=== PATIENT | female | born 1945 | race Caucasian/White ===

== ENCOUNTER 2023-07-31 23:56 | Observation (INO) | payer OTHER, SELFPAY ==
[2023-07-31 19:03] VITALS: BP 142/78
[2023-07-31 19:38] LABS: % Basophils 0.4 % (0-2); % Immature Granulocytes 0.4 % (0-0.5); % Lymphocytes 13.6 % (20.5-51.1); % Monocytes 11.8 % (1.7-9.3); % Neutrophils 73.8 % (42.2-75.2); Absolute Lymphocytes 1.1 10^3/uL (1.2-3.4); Absolute Monocytes 0.9 10^3/uL (0.1-0.6); Absolute Neutrophils 5.7 10^3/uL (1.4-6.5); Hematocrit 47.5 % (37.0-47.0); Hemoglobin 16.5 g/dL (12.0-16.0); Mean Corp Hgb Conc. 34.7 g/dL (33.0-37.0); Mean Corpuscular Hgb 31.4 pg (27.0-31.0); Mean Corpuscular Volume 90.5 fL (81.0-99.0); Mean Platelet Volume 10.2 fL (7.4-10.4); Nucleated Red Blood Cells % 0 %; Platelet Count 201 10^3/uL (130-400); Red Blood Cell Count 5.25 10^6/uL (4.20-5.40); Red Cell Dist. Width 13.7 % (11.5-14.5); White Blood Cell Count 7.8 10^3/uL (4.8-10.8)
[2023-07-31 19:45] LABS: COVID-19 Antigen Negative (Negative)
[2023-07-31 20:01] LABS: ALT (SGPT) 29 U/L (0-35); AST (SGOT) 47 U/L (14-36); Albumin 4.1 g/dl (3.5-5.0); Alkaline Phosphatase 101 U/L (38-126); Blood Urea Nitrogen 22 mg/dl (7-17); Calcium 9.5 mg/dl (8.4-10.2); Carbon Dioxide 20 mmol/L (22-30); Chloride 100 mmol/L (98-107); Glucose 171 mg/dl (70-99); Potassium 4.1 mmol/L (3.5-5.1); Sodium 136 mmol/L (135-145); Total Bilirubin 0.9 mg/dl (0.2-1.3); Total Protein 7.1 g/dl (6.3-8.2); eGFR > 60.00
--- NOTE | 2023-07-31 22:01 | ED.GENMED ---
History of Present Illness
<Leslye Webster, [facility] - Last Filed: 07/31/23 23:35>
General
Chief Complaint: Head Injury
Source: patient and spouse
Exam Limitations: none
Time Seen by Provider: 07/31/23 22:01
Nursing documentation reviewed up to this point in time: agreed with
Travel History
Have you had any contact with someone who has COVID-19?: No
Do you have any symptoms of coronavirus? Fever > 100 degrees, chills, cough, shortness of breath, sore throat, loss of taste or smell, muscle aches, or headache?: Yes
Symptoms:: cold symptoms
History of Present Illness
History of Present Illness:
This is a 77 YOF with PMHx of HTN, GERD, DM presenting with one episode of syncope and L anterior forehead laceration. Pt had syncopal episode with LOC around 1000 today with no prodromal symptoms. Pt fell from standing and struck her head as she
fell, unsure if it was on a cabinet or the floor. The fall was unwitnessed. Pt does not take anticoags but does take ASA daily. The pt sustained a 5cm jagged edged lac on her L anterior forehead 2.5 cm above the brow. Pt mentioned Pt was
unsteady when ambulating throughout the day since but the patient denied any symptoms, including dizziness. Pt did have recent Hx of dizziness and was eval in Jun 2023, given meclizine Rx for her intermittent symptoms. Pt was unwilling to get eval
initially, but then Pt's took her to Urgent care, but was advised to visit a [facility] for further eval. Upon eval there, Pt was advised to visit ED for eval and Pt then was admitted to ED. Pt mentioned WILSON began since ED admit, but
mentioned it is minor and related to the bright lights as her WILSON is alleviated in a darkened room. Pt admitted one episode of softer stools this AM which is not normal for her, denied melena, hematochezia. Pt admitted to normal appetite and fluid
intake. Pt admitted to recent viral illness with rhinorrhea that has improved over the past week. Pt denied vision changes, chest pain, SOB, N/V/C, sensory deficits. Rx allergy to Metformin.
If applicable-neuro sx onset
Onset of symptoms known: Yes
Date of onset of symptoms: 07/31/23
Time of onset of symptoms: 10:00
Time pt last seen normal is known: Yes
Date last time pt seen normal: 07/31/23
Time last time pt seen normal: 10:00
Review of Systems
<YAO Best - Last Filed: 07/31/23 23:35>
Review of Systems
Allergies reviewed?: Yes
All Other Systems: ROS reviewed and negative except as documented in HPI and ROS
Constitutional: Reports no symptoms
EENT: Reports runny nose
Respiratory: Reports no symptoms
Cardiac: Reports no symptoms
ABD/GI: Reports diarrhea
: Reports no symptoms
Musculoskeletal: Reports no symptoms
Skin: Reports other (laceration)
Neurological: Reports headache, weakness and other (Syncope)
Hematologic/Lymphatic: Reports no symptoms
Psychiatric: Reports no symptoms
Phy Exam
<Leslye Webster LUCIUS - Last Filed: 07/31/23 23:35>
General Physical Exam
General Presentation: well appearing
General age: appears stated age
General Skin: warm and dry
General Habitus: obese
General Mental: alert
General Hydration: appears well hydrated
ENT Exam
ENT Exam: EOMI, neck supple, normocephalic and swallowing well
Eye Exam
Eye Exam: PERRL and EOMI
Cardiovascular Exam
Cardiovascular Exam: regular rate/rhythm, no edema, no gallop, no JVD, no murmur and normal peripheral pulses
Pulmonary Exam
Pulmonary Exam: lungs clear, no respiratory distress, no rales, chest non tender, no crackles, no rhonchi, no stridor, no wheezing and no cough
Gastrointestinal Exam
Gastrointestinal Exam: normal bowel sounds, non tender, soft, no pulsatile mass, non distended and no masses
Neurological Exam
Neurological Exam: alert, oriented x3, no motor deficits, no sensory deficits and speech normal
NIH Stroke Score
Level of Consciousness: 0 - Alert
LOC questions: 0-Answers both correctly
LOC Commands: 0-Performs both correctly
Best Gaze: 0-Normal
Visual Finney: 0=Normal, no visual loss
Facial palsy: 0=Normal, symmetrical
Motor - Right Arm: 0=No drift 10 seconds
Motor - Left Arm: 0=No drift 10 seconds
Motor - Right Le-No drift 5 seconds
Motor - Left Le-No drift 5 seconds
Limb Ataxia: 0-Absent
Sensation: 0-Normal
Best Language: 0-No aphasia
Dysarthria: 0-Normal
Extinction and Inattention: 0-No abnormality
Total Score:: 0
Musculoskeletal Exam
Musculoskeletal Exam: neuro vasc intact
Skin Exam
Skin Exam: normal color, warm/dry and laceration (5cm, L anterior forehead)
Psychiatric Exam
Psychiatric Exam: normal mood/affect
<Ricardo Rebollar DO - Last Filed: 08/01/23 08:01>
NIH Stroke Score
Total Score:: 0
Course
<ST EstephaniaOK - Last Filed: 07/31/23 23:35>
Orders/Labs/Results
Orders:
Orders
07/31/23 19:14
CT Facial Bones W/o Iv Contras Urgent
Comment:
Reason For Exam: fall left cheek pain
CT Head W/o Iv Contrast Urgent
Comment:
Reason For Exam: fall
07/31/23 19:17
COVID-19 Antigen Urgent
Source: Nasal Swab
Comment: .
07/31/23 19:19
Electrocardiogram (*1) Urgent
Reason for Study: Syncope
Cardiology Consult: Unknown
07/31/23 19:20
EKG- Treatment ONCE
07/31/23 19:32
Complete Blood Count/With Diff Urgent
Comprehensive Metabolic Panel Urgent
07/31/23 22:54
Cardiac Monitoring- Treatment ONCE
IV Insert/Care/Rem.- Treatment PRN
07/31/23 22:57
Lactic Acid Q4H
Comment: ON ICE, CANCEL 2ND ORDER IF FIRST LACTIC ACID LEVEL <2
Troponin I Urgent
Blood Culture Q30M
LOVE Source: Blood/Venous
Specimen Description:
Comment: FROM 2 SEPARATE SITES
07/31/23 23:36
Blood Culture Q30M
LOVE Source: Blood/Venous
Specimen Description:
Comment: FROM 2 SEPARATE SITES
Abnormal Lab Results
07/31/23
19:32
Hgb 16.5 H g/dL
(12.0-16.0)
Hct 47.5 H %
(37.0-47.0)
MCH 31.4 H pg
(27.0-31.0)
Absolute Lymphs (auto) 1.1 L 10^3/uL
(1.2-3.4)
Absolute Monos (auto) 0.9 H 10^3/uL
(0.1-0.6)
Lymphocytes % 13.6 L %
(20.5-51.1)
Monocytes % 11.8 H %
(1.7-9.3)
Carbon Dioxide 20 L mmol/L
(22-30)
BUN 22 H mg/dl
(7-17)
Glucose 171 H mg/dl
(70-99)
AST 47 H U/L
(14-36)
07/31/23 19:32
07/31/23 19:32
Vital Signs
Initial and Last Documented VS:
Initial Vital Signs
Temp Pulse Resp BP Pulse Ox
99.6 F 95 20 142/78 96
07/31/23 19:03 07/31/23 19:03 07/31/23 19:03 07/31/23 19:03 07/31/23 19:03
Last Documented Vital Signs
Temp Pulse Resp BP Pulse Ox
100 F 67 20 133/58 89
08/01/23 04:15 08/01/23 06:00 08/01/23 06:00 08/01/23 04:09 08/01/23 06:00
<Ricardo Rebollar, DO - Last Filed: 08/01/23 08:01>
Orders/Labs/Results
Orders:
Orders
07/31/23 19:14
CT Facial Bones W/o Iv Contras Urgent
Comment:
Reason For Exam: fall left cheek pain
CT Head W/o Iv Contrast Urgent
Comment:
Reason For Exam: fall
07/31/23 19:17
COVID-19 Antigen Urgent
Source: Nasal Swab
Comment: .
07/31/23 19:19
Electrocardiogram (*1) Urgent
Reason for Study: Syncope
Cardiology Consult: Unknown
07/31/23 19:20
EKG- Treatment ONCE
07/31/23 19:32
Complete Blood Count/With Diff Urgent
Comprehensive Metabolic Panel Urgent
07/31/23 22:54
Cardiac Monitoring- Treatment ONCE
IV Insert/Care/Rem.- Treatment PRN
07/31/23 22:57
Lactic Acid Q4H
Comment: ON ICE, CANCEL 2ND ORDER IF FIRST LACTIC ACID LEVEL <2
Troponin I Urgent
Blood Culture Q30M
LOVE Source: Blood/Venous
Specimen Description:
Comment: FROM 2 SEPARATE SITES
07/31/23 23:36
Blood Culture Q30M
LOVE Source: Blood/Venous
Specimen Description:
Comment: FROM 2 SEPARATE SITES
Abnormal Lab Results
07/31/23
19:32
Hgb 16.5 H g/dL
(12.0-16.0)
Hct 47.5 H %
(37.0-47.0)
MCH 31.4 H pg
(27.0-31.0)
Absolute Lymphs (auto) 1.1 L 10^3/uL
(1.2-3.4)
Absolute Monos (auto) 0.9 H 10^3/uL
(0.1-0.6)
Lymphocytes % 13.6 L %
(20.5-51.1)
Monocytes % 11.8 H %
(1.7-9.3)
Carbon Dioxide 20 L mmol/L
(22-30)
BUN 22 H mg/dl
(7-17)
Glucose 171 H mg/dl
(70-99)
AST 47 H U/L
(14-36)
07/31/23 19:32
07/31/23 19:32
Vital Signs
Initial and Last Documented VS:
Initial Vital Signs
Temp Pulse Resp BP Pulse Ox
99.6 F 95 20 142/78 96
07/31/23 19:03 07/31/23 19:03 07/31/23 19:03 07/31/23 19:03 07/31/23 19:03
Last Documented Vital Signs
Temp Pulse Resp BP Pulse Ox
100 F 67 20 133/58 89
08/01/23 04:15 08/01/23 06:00 08/01/23 06:00 08/01/23 04:09 08/01/23 06:00
<Ricardo Rebollar DO - Last Filed: 08/01/23 08:01>
Laceration Closure
Left Forehead:
Status of Wound: clean
Size of Wound in cm: 5
Description of Wound Edges: surrounded by abrasion and flap-well vascularized
Preparation: cleaned with saline
Anesthesia: 1% Lidocaine with epi
Revision/Debridement: routine- no revision
Wound exploration: explored to base- no FB
Type of Closure: single layer closure
Skin Closure Material: 5-0 prolene
Number of sutures: 8
<YAO Best - Last Filed: 07/31/23 23:35>
MDM/Problems Addressed
Differential Diagnosis Includes:
Intracranial hemorrhage, facial bone fracture, cranial fracture, CVA, TIA, arrhythmia
MDM/Problems Addressed:
77 YOF presenting with syncope and head injury
<Ricardo Rebollar DO - Last Filed: 08/01/23 08:01>
MDM/Problems Addressed
Chronic conditions affecting care: HTN
Acute Exacerbation and/or Progression of Chronic Illness: HTN
<YAO Best - Last Filed: 07/31/23 23:35>
*Radiology
Radiology exam reviewed: radiology read reviewed
*Pulse Oximetry
Patient hypoxic: no
*Mail Inserter Interpretation
Rate: normal
Interpretation: normal
Heart Rate: 82
Rhythm: sinus and PAC's
*Critical Care Note
Total Time (30-74mins, 75-104mins- exclusive of procedures): Not Applicable
<Ricardo Rebollar DO - Last Filed: 08/01/23 08:01>
*EKG
Interpreted by ED Provider?: Yes
EKG Intrepretation Date: 08/01/23
EKG Intrepretation Time: 19:24
Interpretation: abnormal
Comparison EKG: no comparison EKG present
Heart Rate: 82
Rate: normal
Rhythm: sinus and PAC's
[place]: normal axis
Interval: normal interval
QRS Pattern: normal QRS
Ischemia: no ischemia
ED Attending Note
<YAO Best - Last Filed: 07/31/23 23:35>
-
Portions of this chart may have been created with voice recognition software.� Occasional wrong word or��sound alike� substitutions may have occurred due to the inherent limitations of voice recognition software.
<Ricardo Rebollar DO - Last Filed: 08/01/23 08:01>
ED Attending Note
Patient seen and examined by attending physician: Yes
I performed the substantive portion of visit, reviewed & personally made and approve the management plan that is documented in note by myself or NOMAN.: Yes
I performed a history and physical exam of patient and discussed management with resident, I reviewed resident's note and agree with documented findings and plan of care.: Yes
ED Attending Note:
I have reviewed and agree with history and treatment plan by Leslye Webster. My exam revealed 77-year-old female in no acute distress with 5 cm laceration left forehead/eyebrow. Repaired by myself and PA student. Patient's syncope had no prodrome,
for this reason we will admit her to the hospital for further evaluation
Discharge Plan
Departure
Patient Disposition: Admit
Date of Disposition: 07/31/23
Time of Disposition: 23:26
Admit to: Telemetry
Presentation/result/management discussed w/ accepting MD/DO: Hospitalist
Condition: Good
Discharge Problem:
Syncope, Forehead laceration
Interventions
Interventions:
*Risk Screen - Suicide Last Done: 07/31/23 19:03
*General Assessment Last Done: 07/31/23 19:03
*Neglect/Abuse Screening Last Done: 07/31/23 19:03
ED- Fall Risk Assessment Last Done: 07/31/23 19:03
*ED COVID-19 Vaccine History Last Done: 07/31/23 19:03
ED- Neurological Assessment Last Done: 07/31/23 22:12
ED-Skin Assessment Last Done: 07/31/23 22:12
[2023-07-31 22:06] VITALS: BP 147/79
[2023-07-31 22:11] VITALS: BP 147/79
--- NOTE | 2023-07-31 22:19 | EDRN ---
Granddaughter Kathleen [phone]
Call when discharge
[2023-07-31 23:16] LABS: Lactic Acid 1.2 mmol/L (0.7-2.0)
[2023-07-31 23:29] VITALS: BP 129/75
[2023-07-31 23:29] LABS: Troponin I < 0.012 ng/ml
[2023-08-01] VITALS (20 sets, daily range): BP systolic 103–150; BP diastolic 58–90; PULSE 67–83; BMI 32.8; BMI 22.1
--- NOTE | 2023-08-01 | HPS.HSE ---
Family Physician
-
Family Physician:
Chief Complaint
-
Syncope / Head Injury
History of Present Illness
Patient is a 77y F with PMH significant for Restless Leg Syndrome, GERD and DM-II who presents to ED complaining of head laceration after a syncopal event this AM. History obtained from patient and her at the bedside. Patient states
that she was making breakfast sausage this AM and the next thing she knew she was on the floor. She denies any prodrome of chest pain, palpitations, lightheadedness or dizziness. Her heard a loud bang from upstairs and came down to find
the patient on the floor with head lac and bleeding. She was awake and alert when he arrived. Patient declined medical attention at that time. As the day went on, patient felt well; however, her laceration became larger / more gapped. They went
to a few Urgent Care's for evaluation but were ultimately referred here given the head trauma.
Evaluation in the ED has been relatively unremarkable thus far. L forehead laceration above the eyebrow sutured in the ED.
Patient is resting comfortably at present and has no complaints.
Patient was hospitalized in June at [facility] and again at [facility] for symptoms of lightheadedness / dizziness. It was ultimately determined that she had a vertigo syndrome and she was prescribed meclizine.
She has had no similar symptoms since. She denies any dizziness / room spinning either this AM or at present.
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
Medical History
Past Medical History
Past Medical History: Reports Other
Additional Past Medical History:
DM-II
Restless Leg Syndrome
Hypertension
GERD
Past Surgical History: Reports Other
Additional Past Surgical History:
Bilateral ELYSE
Cholecystectomy
Social History
Tobacco: Former Smoker (Quit smoking 30 years ago. Approx 20 pack years total use.)
Alcohol: None
Drug: None
Family History
Family History: Not pertinent
Allergies / Home Medications
Allergies reflects when Allergies were last updated in [employer] [facility].
Home Medications with original date entered in [employer] [facility]
Allergy/Medication List:
Allergies
Allergy/AdvReac Type Severity Reaction Status Date / Time
metformin Allergy Nausea Verified 07/31/23 19:03
Home Medications
Azo PO DAILY 07/31/23
Lantus Solostar U-100 Insulin QHS 07/31/23
Ocuvite DAILY 07/31/23
Trulicity WEEKLY 07/31/23
amlodipine PO DAILY 07/31/23
aspirin 81 mg tablet 81 mg PO DAILY 07/31/23
atorvastatin PO DAILY 07/31/23
cephalexin PO PRN dental work 07/31/23
famotidine PO QHS 07/31/23
meclizine PO DAILY 07/31/23
omeprazole PO BID 07/31/23
potassium citrate DAILY 07/31/23
pramipexole PO QHS 07/31/23
Review of Systems
-
History Source: Patient
A 12 point ROS was completed and negative except as noted: Yes
Constitutional: Denies Fever or Chills
Respiratory: Denies Cough or Trouble Breathing
Cardiac: Denies Chest Pain or Palpitations
Abdomen/GI: Denies Abdominal Pain, Nausea, Vomiting or Diarrhea
: Denies Dysuria or Frequency
Musculoskeletal: Denies Joint Pain or Edema
Neurological: Denies Dizzy or Headache
Psych: Denies Depression or Anxiety
Physical Exam
Vital Signs
Vital Signs
Temp Pulse Resp BP Pulse Ox
100.3 F 81 16 129/75 96
07/31/23 22:11 07/31/23 23:30 07/31/23 23:30 07/31/23 23:29 07/31/23 22:15
Physical Exam
General: Other (77y F in no distress.)
HEENT: Moist mucous membranes, PERRLA and Other (Laceration over the L eyebrow with sutures in place. No active bleeding.)
Respiratory: Clear; No Wheezes, Rales or Rhonchi
Cardiac: S1/S2 and Regular Rhythm; No Murmur
GI: Soft, Non Tender, Non Distended and Normal Bowel Sounds
Musculoskeletal: No Clubbing, No Cyanosis and No Edema
Neuro: AO x 3 and Nonfocal/grossly intact
Laboratory Results
-
07/31/23 19:32
07/31/23 19:32
Laboratory Results
Lactic Acid 1.2 mmol/L (0.7-2.0) 07/31/23 22:57
Total Bilirubin 0.9 mg/dl (0.2-1.3) 07/31/23 19:32
AST 47 U/L (14-36) H 07/31/23 19:32
ALT 29 U/L (0-35) 07/31/23 19:32
Alkaline Phosphatase 101 U/L (38-126) 07/31/23 19:32
Troponin I < 0.012 ng/ml 07/31/23 22:57
Impression/Plan
-
A/P: Patient is a 77y F with PMH significant for HTN, DM-II who presents to ED for evaluation after syncopal event / forehead laceration.
Syncope
- Observe overnight for further evaluation.
- Monitor on telemetry for any arrhythmia.
- PT / OT evals in the AM.
- Patient with recent episodes of vertigo - though she denies any prodrome of dizziness this AM.
- Follow for any new / recurrent symptoms.
Head Laceration
- s/p suturing in the ED.
- CT head was unremarkable.
- Follow for any neurologic changes.
Benign Hypertension
- Stable. Verify home dose of amlodipine and resume.
DM-II
- Stable. Continue basal : bolus insulin.
- Will begin with Lantus 10 units for now pending dose verification (patient has list of meds, but no doses).
- Follow SSI and cover as needed.
- Update A1C.
RLS
- Resume usual meds once dosing confirmed.
DVT Prophylaxis: SCDs
Code Status: Full
[2023-08-01] MEDS: NSS 1000 IV ×2 (01:54→11:55)
[2023-08-01 02:42] LABS: Troponin I < 0.012 ng/ml
[2023-08-01] MEDS: TYLENOL 650 MG PO ×2 (04:21→19:50)
[2023-08-01 06:31] LABS: Hematocrit 39.6 % (37.0-47.0); Hemoglobin 13.5 g/dL (12.0-16.0); Mean Corp Hgb Conc. 34.1 g/dL (33.0-37.0); Mean Corpuscular Hgb 31.2 pg (27.0-31.0); Mean Corpuscular Volume 91.5 fL (81.0-99.0); Platelet Count 174 10^3/uL (130-400); Red Blood Cell Count 4.33 10^6/uL (4.20-5.40); Red Cell Dist. Width 13.8 % (11.5-14.5); White Blood Cell Count 6.3 10^3/uL (4.8-10.8)
[2023-08-01 06:48] LABS: Blood Urea Nitrogen 23 mg/dl (7-17); Calcium 8.4 mg/dl (8.4-10.2); Carbon Dioxide 19 mmol/L (22-30); Chloride 105 mmol/L (98-107); Estimated Creatinine Clearance 70 ml/min; Glucose 130 mg/dl (70-99); Potassium 3.4 mmol/L (3.5-5.1); Sodium 136 mmol/L (135-145); eGFR > 60.00
[2023-08-01 07:14] LABS: TSH Reflex To Free T4 0.66 uIU/ml (0.47-4.68)
--- NOTE | 2023-08-01 08:48 | W.PN.HOSP.TC ---
Today's Communication/Plan
-
Needs third troponin and PT eval
She wants to go home after this.
Assessment / Plan
Assessment / Plan
77y F with PMH significant for HTN, DM-II who presents to ED for evaluation after syncopal event / forehead laceration.
1. Syncope, has had this before. Labs were suggestive for dehydration and she takes BP meds.
� - Monitor on telemetry for any arrhythmia.
� - PT / OT evals in the AM.
� - Follow for any new / recurrent symptoms.
She requests going home without definitive answer if she is OK on her feet after PT eval in am
She has capacity for this choice
2. Head Laceration
�- s/p suturing in the ED.
�- CT head was unremarkable.
�- Follow for any neurologic changes. None so far this am.
3. Benign Hypertension
�- Stable.� Verify home dose of amlodipine and resume.
-advise her to avoid being dehydrated
4. DM-II
�- Stable.� Continue basal : bolus insulin.
�- Follow SSI and cover as needed.
�- Update A1C.
5. RLS
�- Resume usual meds once dosing confirmed.
DVT Prophylaxis:� SCDs
Code Status:� Full
Anticipated Discharge: Within 24 hours
Subjective/Interval History
-
Date of Service: August 01, 2023
Feels well. No new problems.
Objective Data
-
Labs:
Laboratory Results
08/01/23
06:14
WBC 6.3
Hgb 13.5
Hct 39.6
Plt Count 174
Sodium 136
Potassium 3.4 L
Chloride 105
Carbon Dioxide 19 L
BUN 23 H
Creatinine 0.6
Glucose 130 H
Calcium 8.4
Vital Signs:
Vital Signs
Temp Pulse Resp BP Pulse Ox
100 F 67 20 133/58 89
08/01/23 04:15 08/01/23 06:00 08/01/23 06:00 08/01/23 04:09 08/01/23 06:00
Review of Systems
-
History Source: Patient
All other systems: Reviewed and negative
Physical Exam
-
General: Well Developed, Well Nourished, No Apparent Distress, Comfortable and Conversant
HEENT: Negative Atraumatic (sutured wound, not bleeding.)
Respiratory: Clear to Auscultation
Cardiac: Regular Rhythm and S1/S2
GI: Soft
Musculoskeletal: No Clubbing, No Cyanosis and No Edema
Skin: Warm and Dry; Negative Rash
Neuro: Awake, Alert, Oriented and AO x 3
Psych: Calm
Data Reviewed
-
Labs: Labs Reviewed by me
[2023-08-01 09:14] LABS: Troponin I < 0.012 ng/ml
[2023-08-01 09:21] LABS: Glucose - Point of Care 115 mg/dl (70-99)
[2023-08-01] MEDS: NOVOLOG FLEXPEN-LOW RESISTANCE SC ×2 (09:27→16:20)
[2023-08-01] MEDS: PROTONIX 20 MG PO ×2 (11:30→19:52)
[2023-08-01] MEDS: LOW STRENGTH ASPIRIN 81 MG PO (11:30)
[2023-08-01 11:56] LABS: Glucose - Point of Care 191 mg/dl (70-99)
[2023-08-01] MEDS: NOVOLOG FLEXPEN-LOW RESISTANCE 1 UNITS SC (13:06)
[2023-08-01 14:45] LABS: Glycohemoglobin (HgbA1c) 8.3 % (4.0-5.6)
[2023-08-01 15:07] LABS: Troponin I < 0.012 ng/ml
[2023-08-01 16:20] LABS: Glucose - Point of Care 122 mg/dl (70-99)
[2023-08-01 17:44] LABS: Glucose - Point of Care 140 mg/dl (70-99)
[2023-08-01 21:19] LABS: Glucose - Point of Care 113 mg/dl (70-99)
[2023-08-01] MEDS: LANTUS 0.100000000000000006 UNITS SC (21:30)
[2023-08-02] MEDS: NSS 1000 IV (01:26)
[2023-08-02] MEDS: TYLENOL 650 MG PO (03:07)
[2023-08-02 03:15] VITALS: BP 135/63
[2023-08-02 07:00] VITALS: BP 138/70
[2023-08-02 07:47] LABS: Glucose - Point of Care 107 mg/dl (70-99)
[2023-08-02 08:04] LABS: Hematocrit 39.8 % (37.0-47.0); Hemoglobin 13.2 g/dL (12.0-16.0); Mean Corp Hgb Conc. 33.2 g/dL (33.0-37.0); Mean Corpuscular Hgb 31.7 pg (27.0-31.0); Mean Corpuscular Volume 95.7 fL (81.0-99.0); Mean Platelet Volume 10.4 fL (7.4-10.4); Platelet Count 157 10^3/uL (130-400); Red Blood Cell Count 4.16 10^6/uL (4.20-5.40); Red Cell Dist. Width 13.7 % (11.5-14.5); White Blood Cell Count 5.2 10^3/uL (4.8-10.8)
[2023-08-02] MEDS: NOVOLOG FLEXPEN-LOW RESISTANCE SC (08:18)
[2023-08-02] MEDS: LOW STRENGTH ASPIRIN 81 MG PO (08:19)
[2023-08-02] MEDS: PROTONIX 20 MG PO (08:19)
[2023-08-02 08:34] LABS: Blood Urea Nitrogen 13 mg/dl (7-17); Calcium 8.2 mg/dl (8.4-10.2); Carbon Dioxide 25 mmol/L (22-30); Chloride 111 mmol/L (98-107); Estimated Creatinine Clearance 89 ml/min; Glucose 104 mg/dl (70-99); Potassium 4.3 mmol/L (3.5-5.1); Sodium 138 mmol/L (135-145); eGFR > 60.00
[2023-08-02 09:14] LABS: Hepatitis C Antibody Negative (Negative)
[2023-08-02 10:00] VITALS: BP 121/63; BP 129/62; BP 133/63; PULSE 74; PULSE 76; PULSE 79
[2023-08-02 10:10] LABS: COVID-19 Antigen Negative (Negative)
--- NOTE | 2023-08-02 10:22 | PTCARENOTE ---
Patient tested positive for Influenza A - Dr Moraes notified.
[2023-08-02 11:00] VITALS: BP 126/73; BP 129/65; BP 132/88; PULSE 74; PULSE 77; PULSE 81
[2023-08-02] MEDS: NSS IV (11:50)
[2023-08-02 11:55] LABS: Glucose - Point of Care 163 mg/dl (70-99)
[2023-08-02] MEDS: NOVOLOG FLEXPEN-LOW RESISTANCE 1 UNITS SC (11:57)
--- NOTE | 2023-08-02 12:38 | W.PN.HOSP.TC ---
Addendum entered and electronically signed by Max Moraes MD 08/02/23 16:38:
[id number]
Original Note:
Today's Communication/Plan
-
DC today
Tamiflu
Assessment / Plan
Assessment / Plan
77y F with PMH significant for HTN, DM-II who presents to ED for evaluation after syncopal event / forehead laceration.
#Syncope, has had this before. Labs were suggestive for dehydration
-Flu Positive- most likely contribuatory
-orthos negative
-echo outpatient
-f/u pcp within 1 week
She requests going home without definitive answer
'She has capacity for this choice
#Febrile Episode
#Flu A positive
-tamiflu
-supportive care
#Head Laceration
�- s/p suturing in the ED.
�- CT head was unremarkable.
�- Follow for any neurologic changes. None so far this am.
-F/u outpatient for suture removal
# Benign Hypertension
�- Stable.�
-resume home meds
# DM-II
�- Stable.� Continue basal : bolus insulin.
�- Follow SSI and cover as needed.
# RLS
-�- Resume usual meds once dosing confirmed.
DVT Prophylaxis:� SCDs
Code Status:� Full
DC today
More than 30 minutes spent in discharge including
Final examination of the patient
Summarizing hospital stay
Instructions for continuing care to all relevant caregivers
Preparation of discharge records, prescriptions, and referral forms
Total time spent (35 in minutes):
Anticipated Discharge: Today
Subjective/Interval History
-
Date of Service: August 02, 2023
Patient feels well, spiked temperature overnight, flu positive
Objective Data
-
Labs:
Laboratory Results
08/02/23
07:24
WBC 5.2
Hgb 13.2
Hct 39.8
Plt Count 157
Sodium 138
Potassium 4.3 D
Chloride 111 H
Carbon Dioxide 25
BUN 13
Creatinine 0.5 L
Glucose 104 H
Calcium 8.2 L
Vital Signs:
Vital Signs
Temp Pulse Resp BP Pulse Ox
98.4 F 74 18 126/73 98
08/02/23 11:00 08/02/23 11:00 08/02/23 11:00 08/02/23 11:00 08/02/23 11:00
I&O
08/01/23 08/02/23 08/03/23
06:59 06:59 06:59
Intake Total 240 / 240
Balance 240 / 240
Review of Systems
-
History Source: Patient
All other systems: Reviewed and negative
Physical Exam
-
General: Well Developed, Well Nourished, No Apparent Distress, Comfortable and Conversant
HEENT: Negative Atraumatic (sutured wound, not bleeding.)
Respiratory: Clear to Auscultation
Cardiac: Regular Rhythm and S1/S2
GI: Soft
Musculoskeletal: No Clubbing, No Cyanosis and No Edema
Skin: Warm and Dry; Negative Rash
Neuro: Awake, Alert, Oriented and AO x 3
Psych: Calm
Data Reviewed
-
Labs: Labs Reviewed by me
--- NOTE | 2023-08-02 12:44 | W.DS.TRANS ---
DC Summary - Deployment Engineer
-
Discharge Instructions:
Discharge Diagnosis/Procedures syncopal event / forehead laceration
Diet Low Fat,Low Cholesterol,Diabetic, Carb
Controlled
Activity As tolerated
Instructions:
Stand-Alone Forms:
Changes to Home Medications: No
Discharge Medications:
DC Medications w/original date entered in [facility]
amlodipine 5 mg tablet (Norvasc) 5 mg PO DAILY 07/31/23
atorvastatin 20 mg tablet (Lipitor) 20 mg PO HS 07/31/23
dulaglutide 1.5 mg/0.5 mL subcutaneous pen injector (Trulicity) 1.5 mg SC SA 07/31/23
famotidine 20 mg tablet (Pepcid) 20 mg PO DAILY 07/31/23
insulin glargine 100 unit/mL (3 mL) subcutaneous pen (Lantus Solostar U-100 Insulin) 15 unit SC HS 07/31/23
meclizine 25 mg tablet 25 mg PO TIDPRN PRN dizzyness 07/31/23
omeprazole 40 mg capsule,delayed release 40 mg PO BID 07/31/23
potassium citrate 10 mEq (1,080 mg) tablet,extended release 10 meq PO BID 07/31/23
pramipexole 0.125 mg tablet 0.125 mg PO DAILY 07/31/23
vitamin A-vitamin C-vit E-min tablet 1 tab PO DAILY 07/31/23
aspirin 81 mg tablet,delayed release 81 mg PO DAILY 08/01/23
oseltamivir 75 mg capsule (Tamiflu) 75 mg PO BID 5 days #10 caps 08/02/23
Home Medication Changes
oseltamivir 75 mg capsule (Tamiflu) 75 mg PO BID 5 days #10 caps 08/02/23
Pending Results: No
--- NOTE | 2023-08-02 12:46 | CM ---
Patient seen bedside.
IA completed.
Lives with spouse.
Patient independent prior to admission, uses a cane.
Patient drives.
2 story home with 3 steps to enter.
No VN in the past.
[employer] form reviewed and signed.
Plan: home no needs.
== END 2023-08-02 13:58 | disposition home or self-care (01) ==
LOC: 4 WEST ACU 23:56
PROVIDERS: Internal Medicine; Student in an Organized Health Care Education/Training Program; ADMITTING PHYSICIAN Hospitalist; ATTENDING PHYSICIAN Internal Medicine; EMERGENCY PHYSICIAN Emergency Medicine; FAMILY PHYSICIAN Internal Medicine
DX: R55 Syncope and collapse (principal); S01.81XA Laceration without foreign body of other part of head, initial encounter; J10.1 Influenza due to other identified influenza virus with other respiratory manifestations; E86.0 Dehydration; I10 Essential (primary) hypertension; K21.9 Gastro-esophageal reflux disease without esophagitis; E11.9 Type 2 diabetes mellitus without complications; W18.30XA Fall on same level, unspecified, initial encounter; Y93.9 Activity, unspecified; Y92.009 Unspecified place in unspecified non-institutional (private) residence as the place of occurrence of the external cause; R42 Dizziness and giddiness; Z88.8 Allergy status to other drugs, medicaments and biological substances; Z11.52 Encounter for screening for COVID-19; G25.81 Restless legs syndrome; Z90.49 Acquired absence of other specified parts of digestive tract; Z87.891 Personal history of nicotine dependence; Z79.4 Long term (current) use of insulin; Z79.85 Long-term (current) use of injectable non-insulin antidiabetic drugs; Z79.82 Long term (current) use of aspirin
CPT/HCPCS: 12013; 70450; 70486; 80048; 80053; 82962; 83036; 83605; 84443; 84484; 85025; 85027; 86803; 87040; 87502; 87807; 87811; 93005; 96360; 96361; 97162; 99285; G0378

== ENCOUNTER → 2024-02-04 11:05 | Outpatient (REF) | payer OTHER, SELFPAY | LOC: RAD 11:05 | PROVIDERS: ATTENDING PHYSICIAN Specialist; FAMILY PHYSICIAN Internal Medicine | DX: N20.0 Calculus of kidney (principal) | CPT/HCPCS: 74018 ==